=== PATIENT | male | born 1945 | race Caucasian/White ===

== ENCOUNTER → 2017-08-30 | Outpatient (CLI) | payer OTHER ==
[~2017-08-30] VITALS: Ht 182.9 cm; Wt 113.4 kg
[~2017-08-30] MED LIST: ACTOS 45 MG45 MG; CELEBREX 200 M200 MG; CYMBALTA60 MG PO; FISH OIL 1,001000 MG; GLUCOCIL PO; GLUCOSAMINE &1 EACH; GLUCOVANCE 5-51 EACH; HUMALOG100 UNIT/1 SUBQ; JANUVIA100 MG; LANTUS100 UNIT/M SUBQ; LIPITOR 20 MG T20 M1 PO; LIPITOR40 MG; LOTREL 5-20 MG1 EACH; LOTREL 5-20 MG1 EACH PO; METFORMIN HCL500 MG PO; MULTIVITAMINS; MULTIVITAMINS PO
--- NOTE | ~2017-08-30 | P ---
[facility] [place] [address] PROCEDURE REPORT Name: KASH FU Kamlesh Room #: [id number] Admission: 08/30/17 Attend Phys: Don Rogers Discharge: Date of : 45 Report #: [id number] THIS REPORT FOR: //name// CC: Don Meza DO DATE OF SERVICE: 08/30/2017 PROCEDURE PERFORMED: Colonoscopy with polypectomies. HISTORY OF PRESENT ILLNESS: The patient is a 72-year-old male with a history of colon polyps removed 5 years ago. He is here for routine followup. Denies any symptoms other than near fecal incontinence at times. No family history of colon cancer. DESCRIPTION OF PROCEDURE: The risks and benefits of the procedure were explained to the patient, those risks including but not limited to bleeding, perforation, the risk of sedation. He understood these risks and gave informed consent. Sedation was given using propofol per anesthesia. Next, a digital rectal exam was initially performed, which was normal. Next, using a standard Fujinon colonoscope, the scope was placed in the patient's anus and advanced under direct vision to the cecum. The overall prep was good. The cecum and ileocecal valve were normal in appearance. In the ascending colon, a 5 mm sessile polyp was noted and removed with cold forceps, otherwise normal. In the transverse colon, 2 polyps were noted. The smaller was 3 mm and removed with cold forceps, the larger was 6 mm and removed by snare cautery. The descending and sigmoid colon were normal. The rectal mucosa was normal. On retroflexion, small nonbleeding internal hemorrhoids were noted. The scope was then withdrawn and the procedure terminated. The patient tolerated the procedure well. IMPRESSION: 1. Three small colonic polyps. 2. Small internal hemorrhoids. 3. Otherwise, normal colonoscopy. RECOMMENDATIONS: 1. Await biopsy results. 2. If polyps are hyperplastic, consider repeat colonoscopy in 10 years; if adenomatous polyp, repeat in 5 years. 3. We also discussed the trial of probiotics and fiber. [facility] [address] [place] [address] PROCEDURE REPORT Name: KASH FU Room #: REG DYANA Garza#: [id number] Admission: 08/30/17 Attend Phys: Don Rogers Discharge: Date of : 45 Report #: [id number] Thank you for allowing me to participate in his care. <ELECTRONICALLY SIGNED> By: Don Perkins MD 09/02/17 0814 [id number] Don Perkins MD /nt
== END ==
LOC: GI 07:08
DX: D12.3 Benign neoplasm of transverse colon (principal); K63.5 Polyp of colon; K64.8 Other hemorrhoids; Z86.010 Personal history of colon polyps; I10 Essential (primary) hypertension; E11.9 Type 2 diabetes mellitus without complications; E78.00 Pure hypercholesterolemia, unspecified; M19.90 Unspecified osteoarthritis, unspecified site; F41.9 Anxiety disorder, unspecified; Z87.891 Personal history of nicotine dependence; Z85.46 Personal history of malignant neoplasm of prostate; Z98.890 Other specified postprocedural states; Z79.899 Other long term (current) drug therapy; Z79.4 Long term (current) use of insulin
CPT/HCPCS: 62110; 62900